=== PATIENT | female | born 1960 | race African-American/Black ===

== ENCOUNTER 2018-05-17 09:21 | Outpatient (CLI) | payer MEDICARE, MEDICAID | END 2018-05-17 09:22 | disposition home or self-care (01) | LOC: BICRAD 09:21 | PROVIDERS: ATTEND Nurse Practitioner Family | DX: M54.2 Cervicalgia (principal); M47.892 Other spondylosis, cervical region | CPT/HCPCS: 72040 ==

== ENCOUNTER 2018-09-12 14:30 | Outpatient (CLI) | payer MEDICARE, MEDICAID | END 2018-09-12 14:31 | disposition home or self-care (01) | LOC: BICMAMMO 14:30 | PROVIDERS: ATTEND Nurse Practitioner Family | DX: Z12.31 Encounter for screening mammogram for malignant neoplasm of breast (principal) | CPT/HCPCS: 77063; 77067 ==

== ENCOUNTER 2019-07-04 07:27 | Emergency (ER) | payer MEDICARE, MEDICAID ==
[2019-07-04] MEDS ORDERED: Ketorolac Tromethamine 60 MG/2 ML VIAL ONE (07:50)
[2019-07-04 08:22] LABS: Bilirubin Negative (Negative); Blood, Urine Trace (Negative); Clarity Turbid (Clear); Glucose, Urine (Dipstick) Normal (Negative); Leukocyte 75 Leu/uL (Negative); Nitrite Negative (Negative); Protein, Urine (Dipstick) 10 mg/dL (Neg-Trace); Squamous Epithelial 21-50 HPF (0-3)
[2019-07-04 08:28] LABS: Bacteria/HPF 1+ HPF (None Seen)
[2019-07-04] MEDS ORDERED: predniSONE 20 MG TAB ONE (09:05)
[2019-07-04] MEDS ORDERED: Cyclobenzaprine 10 MG TAB ONE (09:05)
== END 2019-07-04 09:32 | disposition home or self-care (01) ==
LOC: ERS 07:27
DX: S39.012A Strain of muscle, fascia and tendon of lower back, initial encounter (principal); E03.9 Hypothyroidism, unspecified; I10 Essential (primary) hypertension; Z87.891 Personal history of nicotine dependence; Z79.899 Other long term (current) drug therapy; Z79.82 Long term (current) use of aspirin; X50.9XXA Other and unspecified overexertion or strenuous movements or postures, initial encounter
CPT/HCPCS: 81003; 81015; 87086; 96372; 99284; J1885; J7512

== ENCOUNTER 2019-09-30 08:58 | Emergency (ER) | payer MEDICARE, MEDICAID ==
[2019-09-30] MEDS ORDERED: Ibuprofen 800 MG TAB ONE (10:12)
== END 2019-09-30 10:23 | disposition home or self-care (01) ==
LOC: ERS 08:58
DX: H66.92 Otitis media, unspecified, left ear (principal); R05 Cough; I10 Essential (primary) hypertension; E03.9 Hypothyroidism, unspecified; F41.9 Anxiety disorder, unspecified; Z87.891 Personal history of nicotine dependence; Z79.1 Long term (current) use of non-steroidal anti-inflammatories (NSAID); Z79.899 Other long term (current) drug therapy; Z79.82 Long term (current) use of aspirin
CPT/HCPCS: 99282

== ENCOUNTER 2019-10-15 10:32 | Outpatient (CLI) | payer MEDICARE, MEDICAID ==
--- NOTE | 2019-10-15 10:59 | MMO ---
Bilateral MAMMO Bilat Screen [facility]. CLINICAL HISTORY: Patient is 59 years old and is seen for screening. The patient has no family history of breast cancer. The patient has no personal history of cancer. VIEWS: The views performed were: bilateral craniocaudal with tomosynthesis and bilateral mediolateral oblique with tomosynthesis. FILMS COMPARED: The present examination has been compared to prior imaging studies performed at [facility] on 06/24/2015, 07/15/2016, 07/20/2017 and 09/12/2018. This study has been interpreted with the assistance of computer-aided detection. MAMMOGRAM FINDINGS: There are scattered fibroglandular densities. There are no suspicious masses, suspicious calcifications, or new areas of architectural distortion. IMPRESSION: THERE IS NO MAMMOGRAPHIC EVIDENCE OF MALIGNANCY. A ROUTINE FOLLOW-UP MAMMOGRAM IN 1 YEAR IS RECOMMENDED. THE RESULTS OF THIS EXAM WERE SENT TO THE PATIENT. ACR BI-RADS Category 1 - Negative MAMMOGRAPHY NOTE: 1. A negative mammogram report should not delay a biopsy if a dominant of clinically suspicious mass is present. 2. Approximately 10% to 15% of breast cancers are not detected by mammography. 3. Adenosis and dense breasts may obscure an underlying neoplasm. Reported by: ERICA RUVALCABA MD Electonically Signed: [id number]
== END 2019-10-15 10:33 | disposition home or self-care (01) ==
LOC: BICMAMMO 10:32
PROVIDERS: ATTEND Nurse Practitioner Family
DX: Z12.31 Encounter for screening mammogram for malignant neoplasm of breast (principal)
CPT/HCPCS: 77063; 77067

== ENCOUNTER 2019-10-16 09:17 | Outpatient (CLI) | payer MEDICARE, MEDICAID ==
--- NOTE | 2019-10-16 10:07 | ULT ---
Ultrasound of the pelvis: 10/16/2019 COMPARISON:None available HISTORY:Cramping, spotting, dysfunctional uterine bleeding TECHNIQUE: Multiplanar grayscale sonographic imaging of the pelvis obtained with transabdominal and e ndovaginal imaging. FINDINGS: The uterus measures9.5 x 6.4 x 5.5 cm and demonstrates an endometrial thickness ofapproxima tely 6 mm. Neither ovary could be visualized on this examination. No free pelvic fluid is seen. Uterus is enlarged and lobulated with multiple hypoechoic ill-defined masses suggesting uterine fibro id disease, measuring up to 4.5 x 4.2 x 3.6 cm. IMPRESSION:Enlarged lobulated uterus with numerous hypoechoic masses suggesting a fibroid uterus. Nei ther ovary visualized on this exam. Endometrium is mildly thickened for a post-menopausal female (normal endometrial thickness is 5 mm or less). This may be related to bleeding associated with uteri ne fibroid disease. Endometrial hyperplasia or endometrial carcinoma is a possibility in a postmenopausal female with endometrial thickening.
== END 2019-10-16 09:18 | disposition home or self-care (01) ==
LOC: BICULT 09:17
PROVIDERS: ATTEND Nurse Practitioner Family
DX: N93.8 Other specified abnormal uterine and vaginal bleeding (principal); R93.89 Abnormal findings on diagnostic imaging of other specified body structures; N85.8 Other specified noninflammatory disorders of uterus; Z78.0 Asymptomatic menopausal state
CPT/HCPCS: 76856

== ENCOUNTER 2020-03-17 19:19 | Emergency (ER) | payer MEDICARE, MEDICAID, OTHER ==
[2020-03-17] MEDS ORDERED: Acetaminophen 325 MG TAB ONE (19:57)
--- NOTE | 2020-03-17 20:37 | RAD ---
PORTABLE CHEST ONE VIEW: Date: 03-17-2020 Time: 8:21 pm History: Chills, headache, body aches. Comparison: 09-11-15 FINDINGS: The heart size is normal. The lungs are expanded without focal areas of consolidation, pneumothoraces or pleural effusions. IMPRESSION: No radiographic evidence of acute cardiopulmonary process. POS: DEANGELOA
[2020-03-18 16:16] LABS: SARS-CoV-2 MS2 Positive; SARS-CoV-2 N Gene Negative; SARS-CoV-2 S Gene Negative; SARS-CoV-2 orf1ab Negative
== END 2020-03-17 20:58 | disposition home or self-care (01) ==
LOC: ERS 19:19
DX: R50.9 Fever, unspecified (principal); Z20.828 Contact with and (suspected) exposure to other viral communicable diseases; E03.9 Hypothyroidism, unspecified; I10 Essential (primary) hypertension; F41.9 Anxiety disorder, unspecified; Z87.891 Personal history of nicotine dependence; Z79.82 Long term (current) use of aspirin; Z79.899 Other long term (current) drug therapy
CPT/HCPCS: 71045; 87804 ×2; 99283; U0003; 87635

== ENCOUNTER 2020-08-12 22:09 | Emergency (ER) | payer MEDICARE, MEDICAID | END 2020-08-12 22:32 | disposition home or self-care (01) | LOC: ERS 22:09 | DX: M77.02 Medial epicondylitis, left elbow (principal); Z79.891 Long term (current) use of opiate analgesic; E03.9 Hypothyroidism, unspecified; I10 Essential (primary) hypertension; F41.9 Anxiety disorder, unspecified; Z87.891 Personal history of nicotine dependence | CPT/HCPCS: 99283 ==

== ENCOUNTER 2020-11-24 13:02 | Outpatient (CLI) | payer MEDICARE, MEDICAID ==
--- NOTE | 2020-11-24 13:48 | MMO ---
Bilateral MAMMO Bilat Screen [facility]. CLINICAL HISTORY: Patient is 60 years old and is seen for screening. The patient has no family history of breast cancer. The patient has no personal history of cancer. VIEWS: The views performed were: bilateral craniocaudal with tomosynthesis and bilateral mediolateral oblique with tomosynthesis. FILMS COMPARED: The present examination has been compared to prior imaging studies performed at [facility] on 07/15/2016, 07/20/2017, 09/12/2018 and 10/15/2019. This study has been interpreted with the assistance of computer-aided detection. MAMMOGRAM FINDINGS: There are scattered fibroglandular densities. There are no suspicious masses, suspicious calcifications, or new areas of architectural distortion. IMPRESSION: THERE IS NO MAMMOGRAPHIC EVIDENCE OF MALIGNANCY. A ROUTINE FOLLOW-UP MAMMOGRAM IN 1 YEAR IS RECOMMENDED. THE RESULTS OF THIS EXAM WERE SENT TO THE PATIENT. ACR BI-RADS Category 1 - Negative MAMMOGRAPHY NOTE: 1. A negative mammogram report should not delay a biopsy if a dominant of clinically suspicious mass is present. 2. Approximately 10% to 15% of breast cancers are not detected by mammography. 3. Adenosis and dense breasts may obscure an underlying neoplasm. Reported by: PALOMA ANTHONY MD Electonically Signed: [id number]
== END 2020-11-24 13:03 | disposition home or self-care (01) ==
LOC: BICMAMMO 13:02
PROVIDERS: ATTEND Nurse Practitioner Family
DX: Z12.31 Encounter for screening mammogram for malignant neoplasm of breast (principal)
CPT/HCPCS: 77063; 77067

== ENCOUNTER 2020-12-08 08:58 | Outpatient (CLI) | payer MEDICARE, MEDICAID | END 2020-12-08 08:59 | disposition home or self-care (01) | LOC: BICULT 08:58 | PROVIDERS: ATTEND Nurse Practitioner Family | DX: N93.8 Other specified abnormal uterine and vaginal bleeding (principal); D25.9 Leiomyoma of uterus, unspecified | CPT/HCPCS: 76856 ==

== ENCOUNTER 2021-02-26 08:42 | Emergency (ER) | payer MEDICARE, MEDICAID ==
[2021-02-26 09:19] LABS: #Eosinphils 0.1 thou/uL (0.0-0.7); #Lymphocytes 2.3 thou/uL (1.20-3.40); #Monocytes 0.5 thou/uL (0.11-0.59); #Neutrophils 2.8 thou/uL (1.40-6.50); %Basophils 0.5 % (0.0-1.0); %Eosinophils 1.9 % (0.0-10.0); %Lymphocytes 39.5 % (21.0-51.0); %Monocytes 9.2 % (0.0-10.0); Hemoglobin 13.5 g/dL (12.0-16.0); Mean Corpuscular HGB CONC 32.9 g/dL (32.0-36.0); Mean Corpuscular Volume 94.2 fL (78.0-98.0); Mean Platelet Volume 6.8 fL (7.4-10.4); Platelet Count 320 thou/uL (130-400); RBC Distribution Width 12.6 % (11.5-14.5); Red Blood Cell (RBC) Count 4.36 mill/uL (4.20-5.40); White Blood Cell (WBC) Count 5.7 thou/uL (4.8-10.8)
[2021-02-26 09:40] LABS: ALT (SGPT) 22 U/L (8-55); AST (SGOT) 24 U/L (5-34); Alkaline Phosphatase 79 U/L (40-110); Anion Gap 13 mmol/L (10-20); BUN (Urea Nitrogen) 14 mg/dL (9.8-20.1); Bilirubin, Total 0.6 mg/dL (0.2-1.2); Calc. Creatinine Clearance 0 mL/min (70-130); Calcium 8.9 mg/dL (7.8-10.44); Carbon Dioxide 25 mmol/L (22-29); Chloride 104 mmol/L (98-107); Globulin 3.7 g/dL (2.4-3.5); Glucose 100 mg/dL (70-105); Potassium 3.2 mmol/L (3.5-5.1); Protein, Total 7.7 g/dL (6.0-8.3); Sodium 139 mmol/L (136-145)
[2021-02-26 09:53] LABS: Bilirubin Negative (Negative); Blood, Urine Negative (Negative); Clarity Clear (Clear); Glucose, Urine (Dipstick) Normal (Negative); Ketone, Urine Negative (Negative); Leukocyte Negative Leu/uL (Negative); Nitrite Negative (Negative); Protein, Urine (Dipstick) Negative (Neg-Trace); Specific Gravity, Urine 1.018 (1.002-1.036); Urobilinogen Normal mg/dL (Less than 2); pH, Urine 6.5 (5.0-9.0)
== END 2021-02-26 11:04 | disposition home or self-care (01) ==
LOC: ERS 08:42
DX: R10.31 Right lower quadrant pain (principal); E03.9 Hypothyroidism, unspecified; I10 Essential (primary) hypertension; Z87.891 Personal history of nicotine dependence; Z79.899 Other long term (current) drug therapy; Z79.82 Long term (current) use of aspirin
CPT/HCPCS: 36415; 74177; 80053; 81003; 83690; 83880; 85025

== ENCOUNTER 2021-10-05 17:31 | Emergency (ER) | payer MEDICARE, OTHER ==
[2021-10-05] MEDS ORDERED: HYDROcodone/Acetaminophen 7.5/325 mg Tablet ONE (18:44)
== END 2021-10-05 19:24 | disposition home or self-care (01) ==
LOC: ERS 17:31
DX: M25.511 Pain in right shoulder (principal); M25.572 Pain in left ankle and joints of left foot; E03.9 Hypothyroidism, unspecified; I10 Essential (primary) hypertension; Z87.891 Personal history of nicotine dependence; Z79.82 Long term (current) use of aspirin; Z79.899 Other long term (current) drug therapy; V89.2XXA Person injured in unspecified motor-vehicle accident, traffic, initial encounter

== ENCOUNTER 2022-03-21 06:15 | Emergency (ER) | payer MEDICAID, MEDICARE, OTHER | END 2022-03-21 07:25 | disposition home or self-care (01) | LOC: ERS 06:15 | DX: M54.41 Lumbago with sciatica, right side (principal); E03.9 Hypothyroidism, unspecified; I10 Essential (primary) hypertension; Z87.891 Personal history of nicotine dependence; Z79.82 Long term (current) use of aspirin; Z79.899 Other long term (current) drug therapy | CPT/HCPCS: 99283 ==

== ENCOUNTER 2023-09-05 08:25 | Outpatient (CLI) | payer OTHER | END 2023-09-05 08:26 | disposition home or self-care (01) | LOC: BICMAMMO 08:25 | PROVIDERS: ATTEND Nurse Practitioner Family | DX: Z12.31 Encounter for screening mammogram for malignant neoplasm of breast (principal) | CPT/HCPCS: 77063; 77067 ==

== ENCOUNTER 2024-03-25 04:21 | Emergency (ER) | payer OTHER ==
[2024-03-25] MEDS ORDERED: Ketorolac Tromethamine 30 MG (1 mL) VIAL ONE (06:51)
[2024-03-25 07:12] LABS: #Basophils 0.04 10x3/uL (0.0-0.2); %Basophils 0.6 % (0.0-1.0); %Eosinophils 3.7 % (0.0-10.0); %Lymphocytes 43.9 % (21.0-51.0); %Monocytes 7.9 % (0.0-10.0); %Neutrophils 43.6 % (42.0-75.0); Hematocrit 40.6 % (36.0-47.0); Hemoglobin 13.3 g/dL (12.0-16.0); Mean Corpuscular HGB CONC 32.8 g/dL (32.0-36.0); Mean Corpuscular Hemoglobin 29.6 pg (27.0-31.0); Mean Corpuscular Volume 90.2 fL (78.0-98.0); Mean Platelet Volume 8.8 fL (7.4-10.4); Platelet Count 370 10x3/uL (130-400); RBC Distribution Width 13.2 % (11.5-14.5)
[2024-03-25 08:05] LABS: ALT (SGPT) 29 U/L (8-55); AST (SGOT) 29 U/L (5-34); Albumin 3.5 g/dL (3.4-4.8); Alkaline Phosphatase 78 U/L (40-110); Anion Gap 14 mmol/L (10-20); BUN (Urea Nitrogen) 14 mg/dL (9.8-20.1); Bilirubin, Total 0.3 mg/dL (0.2-1.2); Calc. Creatinine Clearance 0 mL/min (70-130); Calcium 9.1 mg/dL (7.8-10.44); Carbon Dioxide 28 mmol/L (23-31); Chloride 104 mmol/L (98-107); Estimated GFR 80; Globulin 4.7 g/dL (2.4-3.5); Glucose 101 mg/dL (80-115); Protein, Total 8.2 g/dL (5.8-8.1); Sodium 142 mmol/L (136-145)
[2024-03-25 08:07] LABS: Troponin I Less than 0.010 ng/mL (< 0.028)
== END 2024-03-25 08:37 | disposition home or self-care (01) ==
LOC: ERS 04:21
DX: M25.511 Pain in right shoulder (principal); I10 Essential (primary) hypertension; E03.9 Hypothyroidism, unspecified; Z55.6 Problems related to health literacy; Z79.82 Long term (current) use of aspirin; Z79.899 Other long term (current) drug therapy
CPT/HCPCS: 71045; 80053; 84484; 85025; 93005; J1885; 96374

== ENCOUNTER 2024-10-08 07:00 | Outpatient (CLI) | payer OTHER | END 2024-10-08 07:01 | disposition home or self-care (01) | LOC: BICCT 07:00 | PROVIDERS: ATTEND Internal Medicine | DX: Z12.2 Encounter for screening for malignant neoplasm of respiratory organs (principal); R10.11 Right upper quadrant pain; Z87.891 Personal history of nicotine dependence | CPT/HCPCS: 71271; 76705 ==

== ENCOUNTER 2024-11-07 09:13 | Outpatient (CLI) | payer OTHER ==
[2024-11-07] MEDS ORDERED: Iopamidol 370 76% 100 ML VIAL ONE (09:53)
== END 2024-11-07 09:14 | disposition home or self-care (01) ==
LOC: BICCT 09:13
PROVIDERS: ATTEND Nurse Practitioner Family
DX: R10.9 Unspecified abdominal pain (principal)
CPT/HCPCS: 74177

== ENCOUNTER 2025-06-03 15:01 | Outpatient (CLI) | payer OTHER | END 2025-06-03 15:02 | disposition home or self-care (01) | LOC: BICMRI 15:01 | PROVIDERS: ATTEND Podiatrist Foot & Ankle Surgery | DX: M76.812 Anterior tibial syndrome, left leg (principal); M25.572 Pain in left ankle and joints of left foot; S90.32XA Contusion of left foot, initial encounter; S83.8X2A Sprain of other specified parts of left knee, initial encounter ==